=== PATIENT | female | born 1955 | race Caucasian/White ===

== ENCOUNTER 2023-09-30 06:17 | Day surgery (SDC) | payer MEDICARE, OTHER, SELFPAY ==
[2023-09-18 10:48] VITALS: BMI 21.2
[2023-09-30] VITALS (12 sets, daily range): BP systolic 96–151; BP diastolic 63–90; BMI 21.2
[2023-09-30] MEDS: NORMOSOL-R 1000 IV (13:18)
[2023-09-30] MEDS: TYLENOL 1000 MG PO (13:18)
[2023-09-30] MEDS: CELEBREX 200 MG PO (13:18)
[2023-09-30] MEDS: DILAUDID 0.25 MG IV ×2 (15:21→15:35)
== END 2023-09-30 17:00 | disposition home or self-care (01) ==
LOC: SDS 06:17
PROVIDERS: ATTENDING PHYSICIAN Orthopaedic Surgery Hand Surgery; FAMILY PHYSICIAN Nurse Practitioner Adult Health
DX: M18.0 Bilateral primary osteoarthritis of first carpometacarpal joints (principal)
CPT/HCPCS: 25447; 20604; C1713

== ENCOUNTER → 2023-12-11 06:11 | Outpatient (REF) | payer MEDICARE, OTHER, SELFPAY ==
[2023-12-11 10:44] LABS: ALT (SGPT) 14 U/L (0-35); AST (SGOT) 24 U/L (14-36); Albumin 4.1 g/dl (3.5-5.0); Alkaline Phosphatase 61 U/L (38-126); Direct Bilirubin 0.4 mg/dl (0.0-0.4); HDL Cholesterol 74 mg/dl; LDL Cholesterol, Calculated 48 mg/dl; Total Bilirubin 0.5 mg/dl (0.2-1.3); Total Cholesterol 138 mg/dl (50-199); Total Protein 6.6 g/dl (6.3-8.2); Triglyceride 81 mg/dl (10-149); Very Low Density Lipoprotein 16 mg/dl (0-30)
== END ==
LOC: HWLAB 06:11
PROVIDERS: ATTENDING PHYSICIAN Nurse Practitioner Adult Health
DX: E78.00 Pure hypercholesterolemia, unspecified (principal)
CPT/HCPCS: 36415; 80061; 80076

== ENCOUNTER 2023-12-28 13:36 | Emergency (ER) | payer MEDICARE, OTHER, SELFPAY ==
[2023-12-28 13:38] VITALS: BP 151/80
[2023-12-28 13:57] LABS: % Basophils 0.9 % (0-2); % Eosinophils 1.9 % (0-6); % Immature Granulocytes 0.3 % (0-0.5); % Lymphocytes 31.1 % (20.5-51.1); % Monocytes 5.6 % (1.7-9.3); % Neutrophils 60.2 % (42.2-75.2); Absolute Basophils 0.1 10^3/uL (0-0.2); Absolute Eosinophils 0.1 10^3/uL (0-0.7); Absolute Lymphocytes 2.1 10^3/uL (1.2-3.4); Absolute Monocytes 0.4 10^3/uL (0.1-0.6); Absolute Neutrophils 4.1 10^3/uL (1.4-6.5); Hematocrit 36.6 % (37.0-47.0); Hemoglobin 12.4 g/dL (12.0-16.0); Mean Corp Hgb Conc. 33.9 g/dL (33.0-37.0); Mean Corpuscular Hgb 31.6 pg (27.0-31.0); Mean Corpuscular Volume 93.4 fL (81.0-99.0); Mean Platelet Volume 10.5 fL (7.4-10.4); Nucleated Red Blood Cells % 0 %; Platelet Count 213 10^3/uL (130-400); Red Blood Cell Count 3.92 10^6/uL (4.20-5.40); White Blood Cell Count 6.8 10^3/uL (4.8-10.8)
[2023-12-28 14:18] LABS: ALT (SGPT) 13 U/L (0-35); AST (SGOT) 25 U/L (14-36); Albumin 4.2 g/dl (3.5-5.0); Alkaline Phosphatase 74 U/L (38-126); Blood Urea Nitrogen 10 mg/dl (7-17); Calcium 9.8 mg/dl (8.4-10.2); Carbon Dioxide 27 mmol/L (22-30); Chloride 104 mmol/L (98-107); Glucose 97 mg/dl (70-99); Potassium 3.8 mmol/L (3.5-5.1); Sodium 137 mmol/L (135-145); Total Bilirubin 0.4 mg/dl (0.2-1.3); Total Protein 6.8 g/dl (6.3-8.2); eGFR > 60.00
[2023-12-28 14:28] LABS: Troponin I < 0.012 ng/ml
[2023-12-28 16:25] VITALS: BP 156/84
[2023-12-28 16:54] VITALS: BP 161/89
[2023-12-28 17:00] VITALS: BP 146/82
[2023-12-28] MEDS: PROTONIX IV 40 MG IV (17:29)
[2023-12-28] MEDS: CARAFATE SUSPENSION 1 GM PO (17:29)
[2023-12-28] MEDS: OMNIPAQUE 50 ML PO (17:29)
[2023-12-28 17:30] LABS: Lipase 80 U/L (23-300)
--- NOTE | 2023-12-28 19:34 | ED.GENMED ---
History of Present Illness
General
Chief Complaint: Chest Pain
Source: patient and spouse
Exam Limitations: none
Time Seen by Provider: 12/28/23 16:25
Travel History
Have you had any contact with someone who has COVID-19?: No
Do you have any symptoms of coronavirus? Fever > 100 degrees, chills, cough, shortness of breath, sore throat, loss of taste or smell, muscle aches, or headache?: No
History of Present Illness
History of Present Illness:
68-year-old female presents with epigastric pain. The patient states that has been ongoing for about 3 weeks at this time. However, recently it started radiating to her back. The patient states she has had symptoms like this for many months and
has had multiple studies performed. She states it never really radiate to the back before. No fevers. No shortness of breath. No vomiting. Does not get worse with eating. Symptoms have been ongoing all day and again then again about 3 weeks
ago.
Past History
Past History
ED Past Medical History: GERD, Psychiatric (Anxiety) and Other (Common bile duct stenosis 2009, sphincterotomy/ ERCP)
ED Past Surgical History: Gynecological (Tubal ligation, left breast lumpectomy) and Other (ERCP with sphincterotomy of common bile duct 2009)
Social History
Tobacco: Non-smoker
Alcohol: None
Personal:
Living: with family
Employment: Employed
Family History
Family History: Cancer; Negative Early CAD or CAD
Phy Exam
Physical Exam
Physical Exam:
CONSTITUTIONAL Patient alert and oriented to person, place and time. Well-appearing. Vital signs reviewed.
HEAD atraumatic, normocephalic.
EYES eyelids normal to inspection, Pupils equally round and reactive to light, Extraocular muscles intact, Conjunctiva normal, Sclera normal.
NECK normal range of motion, Trachea midline, no jugular venous distention.
RESPIRATORY CHEST No respiratory distress noted, Chest expansion equal, Bilateral breath sounds clear.
CARDIOVASCULAR regular rate and rhythm, Heart sounds normal.
ABDOMEN mild epigastric tenderness, Bowel sounds normal. No distention.
BACK normal inspection, no obvious deformities
UPPER EXTREMITY range of motion normal, Motor strength normal, no cyanosis, no edema.
LOWER EXTREMITY range of motion normal, Motor strength normal, no cyanosis, no edema.
NEURO Speech normal, No focal motor deficits, [place] coma scale 15, Memory normal, Cranial Nerves intact to screening exam.
SKIN skin warm, dry, and normal in color.
PSYCHIATRIC patient oriented to person place and time, Normal affect.
Course
Orders/Labs/Results
Orders:
Orders
12/28/23 13:40
Electrocardiogram (*1) Urgent
Reason for Study: Chest Pain
EKG- Treatment ONCE
12/28/23 13:48
Complete Blood Count/With Diff Urgent
12/28/23 13:49
Comprehensive Metabolic Panel Urgent
Lipase Urgent
Troponin I Urgent
12/28/23 16:58
Add On- LAB Stat
Tests Added?: lipase
12/28/23 17:04
CT Abd/pel W Iv And Oral Contr Urgent
Comment:
Reason For Exam: epigastric pain
Iohexol [Omnipaque] See Protocol PO NOW STA
12/28/23 17:15
Pantoprazole [Protonix IV] 40 mg IV NOW STA
Sucralfate Suspension [Carafate Suspension] 1 gm PO NOW STA
Abnormal Lab Results
12/28/23
13:48
RBC 3.92 L 10^6/uL
(4.20-5.40)
Hct 36.6 L %
(37.0-47.0)
MCH 31.6 H pg
(27.0-31.0)
MPV 10.5 H fL
(7.4-10.4)
12/28/23 13:48
12/28/23 13:49
Vital Signs
Initial and Last Documented VS:
Initial Vital Signs
Temp Pulse Resp BP Pulse Ox
98.6 F 72 18 151/80 99
12/28/23 13:38 12/28/23 13:38 12/28/23 13:38 12/28/23 13:38 12/28/23 13:38
Last Documented Vital Signs
Temp Pulse Resp BP Pulse Ox
98.6 F 67 15 146/82 100
12/28/23 13:38 12/28/23 18:15 12/28/23 18:15 12/28/23 17:00 12/28/23 18:15
MDM/Problems Addressed
MDM/Problems Addressed:
Epigastric abdominal pain
*Radiology
Radiology exam reviewed: radiology read reviewed
*Pulse Oximetry
Patient hypoxic: no
*EKG
Interpreted by ED Provider?: Yes
Interpretation: normal
Rate: normal
Rhythm: sinus
[place]: normal axis
Interval: normal interval
Ischemia: no ischemia
*[employer] Interpretation
Rate: normal
Interpretation: normal
Rhythm: sinus
*Critical Care Note
Total Time (30-74mins, 75-104mins- exclusive of procedures): Not Applicable
Data Reviewed
Review of Other/Old Records Reveals: Testing (Prior MRCP reviewed. Prior CT reviewed)
Source: patient
Further Testing Considered But Not Given:
Consider chest CT with patient has had evaluations in the past that were reviewed.
Patient Management
Escalation/DeEscalation of care consider admission/obs:
Patient appears well. Patient has had the symptoms for some time. Troponin negative. CT negative. Will trial daily PPI but recommend close outpatient follow-up. She does have noted ductal dilatation but she has had that in the past and her LFTs
are normal. She in fact has had an MRI. No other acute findings. Recommended PCP and gastroenterology follow-up
ED Attending Note
-
Portions of this chart may have been created with voice recognition software.� Occasional wrong word or��sound alike� substitutions may have occurred due to the inherent limitations of voice recognition software.
Discharge Plan
Departure
Patient Disposition: Home (Routine Discharge)
Date of Disposition: 12/28/23
Time of Disposition: 20:58
Patient with high blood pressure during this ER visit?: Yes
Discharge Problem:
Abdominal pain, epigastric
Instructions: Abdominal Pain, Adult ED, BLOOD PRESSURE
Prescriptions:
New
pantoprazole [Protonix] 40 mg tablet,delayed release (DR/EC)
40 mg PO DAILY Qty: 30 0RF
Rx Instructions:
Please take 30 minutes prior to eating or drinking anything in the morning.
No Action
trazodone 50 mg Tablet
75 mg PO HS
rosuvastatin [Crestor] 10 mg Tablet
10 mg PO DAILY
ibandronate [Boniva] 150 mg Tablet
150 mg PO QMONTH
multivitamin Tablet
1 tab PO DAILY
calcium 600 mg Capsule
600 mg PO DAILY
vitamin E 400 unit Tablet
400 unit PO DAILY
cholecalciferol (vitamin D3) [Vitamin D3] 25 mcg (1,000 unit) Tablet
25 mcg PO DAILY
Referrals:
Jeanette Nix CRNP [Family Provider] -
Activity Restrictions/Additional Instructions:
Please see your doctor and GI in the next 1 week for follow-up and reevaluation. Return admitted for worsening pain, shortness of breath, chest pain, weakness of any kind or any other concerns.
Interventions
Interventions:
*Risk Screen - Suicide Last Done: 12/28/23 13:38
*General Assessment Last Done: 12/28/23 13:38
*Neglect/Abuse Screening Last Done: 12/28/23 13:38
ED- Fall Risk Assessment Last Done: 12/28/23 16:37
*ED COVID-19 Vaccine History Last Done: 12/28/23 13:38
ED- Cardiac Assessment Last Done: 12/28/23 16:37
Discharge Date and Time
Print Language: MALTESE
== END 2023-12-28 21:22 | disposition home or self-care (01) ==
LOC: EMR 13:36
PROVIDERS: Emergency Medicine; EMERGENCY PHYSICIAN Emergency Medicine; FAMILY PHYSICIAN Nurse Practitioner Adult Health
DX: R10.13 Epigastric pain (principal); M54.9 Dorsalgia, unspecified; R03.0 Elevated blood-pressure reading, without diagnosis of hypertension; K21.9 Gastro-esophageal reflux disease without esophagitis; F41.9 Anxiety disorder, unspecified
CPT/HCPCS: 99285; 96374; 74177; 80053; 83690; 84484; 85025; 93005; Q9967

== ENCOUNTER → 2024-02-26 08:53 | Outpatient (REF) | payer MEDICARE, OTHER, SELFPAY | LOC: HWRCS 08:53 | PROVIDERS: ATTENDING PHYSICIAN Internal Medicine Cardiovascular Disease; FAMILY PHYSICIAN Nurse Practitioner Adult Health | DX: R06.09 Other forms of dyspnea (principal) | CPT/HCPCS: 93306 ==

== ENCOUNTER → 2024-04-26 15:01 | Outpatient (REF) | payer MEDICARE, OTHER, SELFPAY | LOC: HWWDC 15:01 | PROVIDERS: ATTENDING PHYSICIAN Obstetrics & Gynecology; FAMILY PHYSICIAN Nurse Practitioner Adult Health | DX: Z12.31 Encounter for screening mammogram for malignant neoplasm of breast (principal) | CPT/HCPCS: 77063; 77067 ==

== ENCOUNTER → 2024-05-20 08:47 | Outpatient (REF) | payer MEDICARE, OTHER, SELFPAY | LOC: RCS 08:47 | PROVIDERS: ATTENDING PHYSICIAN Internal Medicine Cardiovascular Disease; FAMILY PHYSICIAN Nurse Practitioner Adult Health | DX: R06.09 Other forms of dyspnea (principal) | CPT/HCPCS: 93017; 93350 ==

== ENCOUNTER → 2024-07-22 09:01 | Outpatient (REF) | payer MEDICARE, OTHER, SELFPAY ==
[2024-07-22 11:13] LABS: Urine Albumin Negative (Neg - Trace); Urine Bilirubin Negative (Negative); Urine Character Clear (Clear); Urine Color Yellow; Urine Glucose Negative (Negative); Urine Ketone Negative (Negative); Urine Leukocyte Trace (Negative); Urine Nitrite Negative (Negative); Urine Occult Blood Negative (Negative); Urine Specific Gravity 1.005 (<1.030); Urine Urobilinogen Negative (Neg - 1+)
[2024-07-22 11:30] LABS: Urine Bacteria Few (Negative); Urine Red Blood Cell 0-2 /HPF (0-2); Urine Squamous Cell 0-2 /LPF (Few); Urine White Cell 0-2 /HPF (0-5)
== END ==
LOC: HWLAB 09:01
PROVIDERS: ATTENDING PHYSICIAN Nurse Practitioner Adult Health
DX: R31.29 Other microscopic hematuria (principal)
CPT/HCPCS: 81003; 81015

== ENCOUNTER 2024-11-20 13:49 | Emergency (ER) | payer MEDICARE, OTHER, SELFPAY ==
[2024-11-20 13:51] VITALS: BP 122/90
[2024-11-20 14:04] LABS: % Basophils 0.5 % (0-2); % Eosinophils 0.2 % (0-6); % Immature Granulocytes 0.3 % (0-0.5); % Lymphocytes 14.2 % (20.5-51.1); % Monocytes 5.9 % (1.7-9.3); % Neutrophils 78.9 % (42.2-75.2); Absolute Basophils 0.1 10^3/uL (0-0.2); Absolute Lymphocytes 1.4 10^3/uL (1.2-3.4); Absolute Monocytes 0.6 10^3/uL (0.1-0.6); Absolute Neutrophils 7.9 10^3/uL (1.4-6.5); Hematocrit 38.8 % (37.0-47.0); Hemoglobin 12.9 g/dL (12.0-16.0); Mean Corp Hgb Conc. 33.2 g/dL (33.0-37.0); Mean Corpuscular Hgb 31.5 pg (27.0-31.0); Mean Corpuscular Volume 94.9 fL (81.0-99.0); Mean Platelet Volume 10.1 fL (7.4-10.4); Nucleated Red Blood Cells % 0 %; Platelet Count 242 10^3/uL (130-400); Red Blood Cell Count 4.09 10^6/uL (4.20-5.40); Red Cell Dist. Width 11.9 % (11.5-14.5)
[2024-11-20 14:43] LABS: ALT (SGPT) 16 U/L (0-35); AST (SGOT) 24 U/L (14-36); Albumin 4.2 g/dl (3.5-5.0); Alkaline Phosphatase 62 U/L (38-126); Blood Urea Nitrogen 17 mg/dl (7-17); Calcium 9.7 mg/dl (8.4-10.2); Carbon Dioxide 26 mmol/L (22-30); Chloride 106 mmol/L (98-107); Glucose 138 mg/dl (70-99); Potassium 4.5 mmol/L (3.5-5.1); Sodium 140 mmol/L (135-145); Total Bilirubin 0.4 mg/dl (0.2-1.3); Total Protein 6.8 g/dl (6.3-8.2); eGFR > 60.00
[2024-11-20 14:44] LABS: Troponin I < 0.012 ng/ml
--- NOTE | 2024-11-20 14:45 | ED.GENMED ---
History of Present Illness
General
Chief Complaint: Chest Pain
Source: patient and spouse
Exam Limitations: none
Time Seen by Provider: 11/20/24 14:44
History of Present Illness
History of Present Illness:
69-year-old female with a weeks of lower midsternal chest pain. Some radiation to the back. Pain has been constant although does wax and wane. Nonexertional. Nonpleuritic. No fever cough or shortness of breath. She was told by her physician
this is costochondritis. She is on a course of steroids currently. No improvement. Patient wants to be sure this is nothing serious. She had similar episode years ago. It eventually went away after she has had a upper endoscopy last summer and
a stress test last summer that were all unremarkable per the patient
Past History
Past History
ED Past Medical History: GERD, Psychiatric (Anxiety) and Other (Common bile duct stenosis 2009, sphincterotomy/ ERCP)
ED Past Surgical History: Gynecological (Tubal ligation, left breast lumpectomy) and Other (ERCP with sphincterotomy of common bile duct 2009)
Social History
Tobacco: Non-smoker
Alcohol: None
Personal:
Living: with family
Employment: Employed
Family History
Family History: Cancer; Negative Early CAD or CAD
Review of Systems
Review of Systems
All Other Systems: Not applicable
Constitutional: Denies fever or chills
Respiratory: Reports no symptoms
ABD/GI: Reports no symptoms; Denies diarrhea, bloody stools or black stools
Phy Exam
Physical Exam
Physical Exam:
GENERAL: Alert and oriented in no apparent distress
EYE: Orbits normal.
NECK: Supple, no significant adenopathy.
ENT: Pharynx without erythema
CARDIAC: Regular rate and rhythm without any obvious murmurs.
LUNGS: Clear breath sounds,normal. No chest wall tenderness
ABDOMEN: Soft, without focal tenderness or distention. No epigastric tenderness
NEUROLOGICAL: Alert and oriented , grossly non-focal
SKIN: Warm and dry, no rash or lesion, no discoloration, skin intact.
MUSCULOSKELETAL: No edema,no deformity.Good color
PSYCH: Normal and appropriate interaction.
Scores
Heart Score for Chest Pain Patients
STEMI patient?: No
History: Slightly or Non-Suspicious
ECG: Normal
Age: >/= 65 years
Risk Factors: 1 or 2 Risk Factors
Troponin: </= Normal Limit
Heart Score for Chest Pain Patients: 3
Heart Score Risk: 2.5% MACE over next 6 weeks
Course
Orders/Labs/Results
Orders:
Orders
11/20/24 13:50
EKG [Electrocardiogram (*1)] Urgent
Reason for Study: Chest Pain
EKG- Treatment ONCE
11/20/24 13:58
Complete Blood Count/With Diff Urgent
Comprehensive Metabolic Panel Urgent
Lipase Urgent
Troponin I Urgent
11/20/24 15:02
Add On- LAB Urgent
Tests Added?: lipase
CT Chest Angio W/wo Iv Contras Urgent
Comment:
Reason For Exam: Chest pain radiation to back
11/20/24 17:07
Ketorolac [Toradol] 15 mg IV NOW STA
Abnormal Lab Results
11/20/24
13:58
RBC 4.09 L 10^6/uL
(4.20-5.40)
MCH 31.5 H pg
(27.0-31.0)
Absolute Neuts (auto) 7.9 H 10^3/uL
(1.4-6.5)
Neutrophils % 78.9 H %
(42.2-75.2)
Lymphocytes % 14.2 L %
(20.5-51.1)
Glucose 138 H mg/dl
(70-99)
11/20/24 13:58
11/20/24 13:58
Vital Signs
Initial and Last Documented VS:
Initial Vital Signs
Temp Pulse Resp BP
98.5 F 77 18 122/90
11/20/24 13:51 11/20/24 13:51 11/20/24 13:51 11/20/24 13:51
Last Documented Vital Signs
Temp Pulse Resp BP Pulse Ox
98.5 F 79 18 138/82 100
11/20/24 13:51 11/20/24 18:00 11/20/24 18:00 11/20/24 18:00 11/20/24 18:00
MDM/Problems Addressed
Differential Diagnosis Includes:
Patient with continuous, although waxing and waning, nonexertional chest pain lower anterior midsternal area x 3 weeks. It has been continuous with a normal EKG and negative troponin. In addition she had a low risk stress test last summer. I do
not feel this is cardiac. With the pain radiating to the back we will get a CT scan. If this is unremarkable serious etiologies have been evaluated. Costochondritis would be a consideration although I would expect some more point tenderness more
positional component. Reflux also a possibility although patient states she had a normal upper endoscopy last summer. She was not having symptoms at that time. She was placed on a PPI recently.
*Radiology
Radiology exam reviewed: radiology read reviewed (Negative)
*Pulse Oximetry
Patient hypoxic: no
*EKG
Interpreted by ED Provider?: Yes
Interpretation: normal
Comparison EKG: no changes
Heart Rate: 76
Rate: normal
Rhythm: sinus
[place]: normal axis
Interval: normal interval
QRS Pattern: normal QRS
Ischemia: no ischemia
*Critical Care Note
Total Time (30-74mins, 75-104mins- exclusive of procedures): Not Applicable
Data Reviewed
Review of Other/Old Records Reveals: Labs and Records
Update Note
Update Note:
No serious etiology found. Patient is nontoxic. Continue with symptoms for 3 weeks. Stable for discharge to follow-up
ED Attending Note
-
Portions of this chart may have been created with voice recognition software.� Occasional wrong word or��sound alike� substitutions may have occurred due to the inherent limitations of voice recognition software.
Discharge Plan
Departure
Patient Disposition: Home (Routine Discharge)
Date of Disposition: 11/20/24
Time of Disposition: 18:39
Patient with high blood pressure during this ER visit?: Yes
Discharge Problem:
Anterior chest pain
Instructions: Chest pain - Discharge instructions, BLOOD PRESSURE
Prescriptions:
No Action
trazodone 50 mg Tablet
75 mg PO HS
rosuvastatin [Crestor] 10 mg Tablet
10 mg PO DAILY
ibandronate [Boniva] 150 mg Tablet
150 mg PO QMONTH
multivitamin Tablet
1 tab PO DAILY
calcium 600 mg Capsule
600 mg PO DAILY
vitamin E 400 unit Tablet
400 unit PO DAILY
cholecalciferol (vitamin D3) [Vitamin D3] 25 mcg (1,000 unit) Tablet
25 mcg PO DAILY
pantoprazole [Protonix] 40 mg tablet,delayed release (DR/EC)
40 mg PO DAILY Qty: 30 0RF
Rx Instructions:
Please take 30 minutes prior to eating or drinking anything in the morning.
Referrals:
Jeanette Nix CRNP [Family Provider] - Follow up in 2-3 days
Activity Restrictions/Additional Instructions:
To consider also following up with your smoking pipe repairer
Interventions
Interventions:
*Risk Screen - Suicide Last Done: 11/20/24 15:06
*General Assessment Last Done: 11/20/24 15:06
*Neglect/Abuse Screening Last Done: 11/20/24 15:06
*ED- Fall Risk Assessment Last Done: 11/20/24 15:06
*ED COVID-19 Vaccine History Last Done: 11/20/24 15:06
ED- Cardiac Assessment Last Done: 11/20/24 15:13
Discharge Date and Time
Print Language: HEBREW
[2024-11-20 15:07] VITALS: BMI 23.3
[2024-11-20 15:13] VITALS: BP 158/77
[2024-11-20 15:14] VITALS: BP 158/77
[2024-11-20 15:21] LABS: Lipase 117 U/L (23-300)
[2024-11-20 16:00] VITALS: BP 137/88
[2024-11-20 17:00] VITALS: BP 137/75
[2024-11-20] MEDS: TORADOL 15 MG IV (17:09)
[2024-11-20 18:00] VITALS: BP 138/82
== END 2024-11-20 18:53 | disposition home or self-care (01) ==
LOC: EMR 13:49
PROVIDERS: Emergency Medicine; EMERGENCY PHYSICIAN Emergency Medicine; FAMILY PHYSICIAN Nurse Practitioner Adult Health
DX: R07.89 Other chest pain (principal); R03.0 Elevated blood-pressure reading, without diagnosis of hypertension
CPT/HCPCS: 99285; 96374; 71275; 80053; 83690; 84484; 85025; 93005; Q9967

== ENCOUNTER → 2024-11-21 08:14 | Outpatient (REF) | payer MEDICARE, OTHER, SELFPAY ==
[2024-11-21 13:22] LABS: Folate 11.1 ng/ml (2.76-20); Vitamin B12 458 pg/ml (239-931)
[2024-11-21 13:28] LABS: ALT (SGPT) 15 U/L (0-35); AST (SGOT) 23 U/L (14-36); Albumin 4.2 g/dl (3.5-5.0); Alkaline Phosphatase 68 U/L (38-126); Blood Urea Nitrogen 16 mg/dl (7-17); Calcium 9.4 mg/dl (8.4-10.2); Carbon Dioxide 28 mmol/L (22-30); Chloride 106 mmol/L (98-107); Glucose 97 mg/dl (70-99); HDL Cholesterol 89 mg/dl; LDL Cholesterol, Calculated 44 mg/dl; Potassium 4.1 mmol/L (3.5-5.1); Sodium 142 mmol/L (135-145); Total Bilirubin 0.6 mg/dl (0.2-1.3); Total Cholesterol 160 mg/dl (50-199); Total Protein 6.8 g/dl (6.3-8.2); Triglyceride 139 mg/dl (10-149); Very Low Density Lipoprotein 27 mg/dl (0-30); eGFR > 60.00
[2024-11-22 13:39] LABS: Syphilis/T. pallidum Ab Reflex Negative (Negative)
[2024-11-23 10:46] LABS: 24 Hour Urine Total Volume Random mL; Urine Collection Length Random hr; Urine Free Kappa Light Chains 23.05 mg/L (0.00-32.90)
== END ==
LOC: HWLAB 08:14
PROVIDERS: ATTENDING PHYSICIAN Nurse Practitioner Adult Health
DX: E78.00 Pure hypercholesterolemia, unspecified (principal); R68.89 Other general symptoms and signs; M94.0 Chondrocostal junction syndrome [Tietze]
CPT/HCPCS: 36415; 80053; 80061; 82607; 82746; 83521; 84155; 84156; 84165; 86335; 86780

== ENCOUNTER → 2025-04-11 09:09 | Outpatient (REF) | payer MEDICARE, OTHER, SELFPAY ==
[2025-04-11 11:58] LABS: Hematocrit 42.3 % (37.0-47.0); Hemoglobin 13.9 g/dL (12.0-16.0); Mean Corp Hgb Conc. 32.9 g/dL (33.0-37.0); Mean Corpuscular Volume 94.8 fL (81.0-99.0); Nucleated Red Blood Cells % 0 %; Platelet Count 222 10^3/uL (130-400); Red Cell Dist. Width 12.2 % (11.5-14.5)
[2025-04-11 12:24] LABS: Blood Urea Nitrogen 17 mg/dl (7-17); Calcium 9.7 mg/dl (8.4-10.2); Carbon Dioxide 26 mmol/L (22-30); Chloride 105 mmol/L (98-107); Glucose 106 mg/dl (70-99); Potassium 4.4 mmol/L (3.5-5.1); Sodium 138 mmol/L (135-145); eGFR > 60.00
== END ==
LOC: HWLAB 09:09
PROVIDERS: ATTENDING PHYSICIAN Orthopaedic Surgery Hand Surgery; FAMILY PHYSICIAN Nurse Practitioner Adult Health
DX: Z01.818 Encounter for other preprocedural examination (principal)
CPT/HCPCS: 36415; 80048; 85025

== ENCOUNTER → 2025-04-28 08:14 | Outpatient (REF) | payer MEDICARE, OTHER, SELFPAY | LOC: HWWDC 08:14 | PROVIDERS: ATTENDING PHYSICIAN Obstetrics & Gynecology; FAMILY PHYSICIAN Nurse Practitioner Adult Health | DX: M81.0 Age-related osteoporosis without current pathological fracture (principal); Z12.31 Encounter for screening mammogram for malignant neoplasm of breast | CPT/HCPCS: 77063; 77067; 77080 ==

== ENCOUNTER → 2025-06-05 07:19 | Outpatient (REF) | payer MEDICARE, OTHER, SELFPAY ==
[2025-06-05 09:52] LABS: Hematocrit 39.9 % (37.0-47.0); Hemoglobin 13.2 g/dL (12.0-16.0); Mean Corp Hgb Conc. 33.1 g/dL (33.0-37.0); Mean Corpuscular Volume 96.6 fL (81.0-99.0); Nucleated Red Blood Cells % 0 %; Platelet Count 228 10^3/uL (130-400); Red Cell Dist. Width 12.4 % (11.5-14.5)
[2025-06-05 10:09] LABS: ALT (SGPT) 15 U/L (0-35); AST (SGOT) 21 U/L (14-36); Albumin 4.3 g/dl (3.5-5.0); Alkaline Phosphatase 47 U/L (38-126); Blood Urea Nitrogen 12 mg/dl (7-17); Calcium 9.3 mg/dl (8.4-10.2); Carbon Dioxide 26 mmol/L (22-30); Chloride 107 mmol/L (98-107); Glucose 92 mg/dl (70-99); Magnesium 2.3 mg/dl (1.6-2.3); Potassium 4.3 mmol/L (3.5-5.1); Sodium 140 mmol/L (135-145); Total Protein 7.0 g/dl (6.3-8.2); eGFR > 60.00
== END ==
LOC: HWLAB 07:19
PROVIDERS: ATTENDING PHYSICIAN Nurse Practitioner Adult Health
DX: F41.1 Generalized anxiety disorder (principal); R01.1 Cardiac murmur, unspecified; R00.2 Palpitations
CPT/HCPCS: 36415; 80053; 83735; 84443; 85025

== ENCOUNTER → 2025-06-07 13:36 | Outpatient (REF) | payer MEDICARE, OTHER, SELFPAY | LOC: HWRCS 13:36 | PROVIDERS: ATTENDING PHYSICIAN Nurse Practitioner Adult Health | DX: R01.1 Cardiac murmur, unspecified (principal) | CPT/HCPCS: 93306 ==